=== PATIENT | male | born 1955 ===

== ENCOUNTER 2020-11-08 08:17 | Emergency (ER) | payer SELFPAY ==
[~2020-11-08] VITALS: Ht 175.3 cm; Wt 88.0 kg
--- NOTE | 2020-11-08 09:28 | NUR ---
pt presents to ed with c/o left lower extremity pain/swelling, specifically to the foot x 2 weeks. pt has scabbed over sore on bottom of left foot, swelling/erythema noted to L foot traveling up L leg. pt has hx of diabetes. pt a&o, resps even and unlabored, vss, nadn. erpa student at bedside for inital assessment/eval.
[2020-11-08 10:07] LABS: BASOPHILS % (AUTO) 0 % (0-1); EOSINOPHILS % (AUTO) 2 % (1-7); LYMPHOCYTES % (AUTO) 19 % (22-44); MEAN CORPUSCULAR HEMOGLOBIN 31.9 pg (27.5-34.5); MEAN CORPUSCULAR HGB CONC 34.4 g/dL (33.2-36.2); MEAN PLATELET VOLUME 7.8 fL (7.4-10.4); MONOCYTES % (AUTO) 9 % (2-9); NEUTROPHILS % (AUTO) 70 % (42-75); PLATELET COUNT 260 x10^3/uL (130-400); RED BLOOD COUNT 4.09 x10^6/uL (4.38-5.82); RED CELL DISTRIBUTION WIDTH 12.6 % (9.4-14.8)
[2020-11-08 10:14] LABS: HCT (SEDRATE) 38.1 % (39.2-51.8)
[2020-11-08 10:20] LABS: ALANINE AMINOTRANSFERASE 27 U/L (12-78); ALBUMIN 2.8 g/dL (3.4-5.0); ANION GAP 7 mmol/L (5-15); CHLORIDE 109 mmol/L (98-107); CREATININE 2.65 mg/dL (0.7-1.3)
[2020-11-08 10:29] LABS: ALKALINE PHOSPHATASE 102 U/L (45-117); BILIRUBIN,TOTAL 0.3 mg/dL (0.2-1.0); TOTAL PROTEIN 6.6 g/dL (6.4-8.2)
--- NOTE | 2020-11-08 10:32 | NUR ---
pt sitting up in bed, a&o, resps even and unlabored, vss, nadn. call light in reach, awaiting lab/xr results and dispo.
[2020-11-08 11:32] VITALS: BP 154/65
--- NOTE | 2020-11-08 11:38 | NUR ---
PT RESTING IN BED, A&O, RESPS EVEN AND UNLABORED, VSS, NADN. AWAITING ESR LAB RESULTS AND DISPO.
--- NOTE | 2020-11-08 12:12 | NUR ---
DISCHARGE INSTRUCTIONS REVIEWED, PT EDUCATED ON PRESCRIPTION, FOLLOW-UP, AND RETURN CRITERIA, VERBALIZED UNDERSTANDING. AMBULATORY TO DISCHARGE WITH STEADY GAIT.
== END 2020-11-08 12:14 | disposition home or self-care (01) ==
LOC: ED 10:49
DX: E11.65 Type 2 diabetes mellitus with hyperglycemia (principal); E11.42 Type 2 diabetes mellitus with diabetic polyneuropathy; E11.621 Type 2 diabetes mellitus with foot ulcer; L97.429 Non-pressure chronic ulcer of left heel and midfoot with unspecified severity; I10 Essential (primary) hypertension; Z87.891 Personal history of nicotine dependence
CPT/HCPCS: 36415; 80053; 85025; 85651; 86140; 99284